=== PATIENT | female | born 1935 | race Caucasian/White ===

== ENCOUNTER 2019-03-13 18:43 | Emergency (ER) | payer OTHER ==
[2019-03-13 19:20] VITALS: BMI 26.2
--- NOTE | 2019-03-13 19:52 | PDOC ---
History of Present Illness - General History Source: Custodial Records Exam Limitations: Other (nonverbal) - History of Present Illness Initial Comments: 03/13/19 19:45 84YOF with h/o HTN, PVD, osteoarthritis, osteoporosis, schizoaffective disorder (essentially nonverbal and confused but alert at baseline), major depression, and anxiety who was BIBEMS from her CHF ([facility]) for witnessed fall from her wheelchair at 6:15 pm today. Per the Jesus RN in charge of her care at this time, she had been talking on the phone with a family member in the community TV room when she slipped out of the chair as witnessed by multiple other residents and staff. She was not reported to have lost consciousness, and did not complain of pain or any other symptoms subsequently. She did not lose a significant amount of blood on the floor but did suffer a small laceration to the top of the head. SNF staff deny any other preceding or subsequent obvious symptoms. She is DNR per SNF paperwork. <Winter Sheikh - Last Filed: 03/13/19 22:32> <Attila Graham - Last Filed: 03/16/19 20:17> - General Chief Complaint: Injury Stated Complaint: FALL Time Seen by Provider: 03/13/19 19:36 Past History - Past Medical History Anemia: No Asthma: No Cancer: No Cardiac Disorders: No CVA: No COPD: Yes (not on any meds or o2. SHERYL Igor states pt is not being treated for COPD) CHF: No Dementia: Yes Diabetes: No GI Disorders: Yes Disorders: No HTN: Yes Hypercholesterolemia: Yes Liver Disease: No Seizures: No Thyroid Disease: No - Surgical History Abdominal Surgery: No Appendectomy: No Cardiac Surgery: No Cholecystectomy: No Lung Surgery: No Neurologic Surgery: No Orthopedic Surgery: No - Suicide/Smoking/Psychosocial Hx Smoking History: Unknown if ever smoked Hx Alcohol Use: No Drug/Substance Use Hx: No Substance Use Type: None <Winter Sheikh - Last Filed: 03/13/19 22:32> <Attila Graham - Last Filed: 03/16/19 20:17> - Past Medical History Allergies/Adverse Reactions: Allergies Allergy/AdvReac Type Severity Reaction Status Date / Time apricot [Apricot] Allergy Unknown Verified 07/24/15 10:58 blueberry [Blueberry] Allergy Unknown Verified 07/24/15 10:58 peach [Pender] Allergy Unknown Verified 07/24/15 10:58 Pork/Porcine Containing Allergy Unknown Verified 07/24/15 10:58 Products strawberry [Avoca] Allergy Unknown Verified 07/24/15 10:58 seafood Allergy Unknown Uncoded 07/24/15 10:58 Home Medications: Ambulatory Orders Aspirin [ASA -] 81 mg PO DAILY 05/16/14 Cyanocobalamin Vit B-12 Inj. [Vitamin B12 Injection -] 1,000 mcg IM MONTHLY Docusate Sodium [Colace -] 2 tab PO HS 05/16/14 Furosemide [Lasix -] 40 mg PO DAILY 05/16/14 Gabapentin [Neurontin] 100 mg PO DAILY 05/16/14 Metoprolol Tartrate [Lopressor -] 25 mg PO BID 05/16/14 Polyethylene Glycol 3350 [Miralax 119 gm Btl -] 17 gm PO DAILY 05/16/14 Acetaminophen [Tylenol] 650 mg PO Q6H PRN 07/23/15 Clonazepam [Klonopin] 0.25 mg PO BID 07/23/15 Folic Acid 1 mg PO DAILY 07/23/15 Nystatin Cream [Mycostatin Cream -] 1 applic TP BID 07/23/15 Paroxetine HCl [Paxil -] 10 mg PO DAILY 07/23/15 Petrolatum,White [Hydrophor] 100 gm TP DAILY 07/23/15 Review of Systems - Review of Systems Able to Perform ROS?: No (nonverbal) <Winter Sheikh - Last Filed: 03/13/19 22:32> *Physical Exam - Vital Signs Last Vital Signs Temp Pulse Resp BP Pulse Ox 97.8 F 78 18 137/49 L 96 03/13/19 19:11 03/13/19 19:11 03/13/19 19:11 03/13/19 19:11 03/13/19 19:11 - Physical Exam Comments: 03/13/19 20:05 GENERAL: alert, awake, nonverbal, makes fleeting eye contact but does not track , moving all extremities, no distress, smiling HEENT: 2.5 cm laceration to right medial parietal region which is hemostatic and appears amenable to jeny, small non-boggy surrounding contusion without cephalohematoma, otherwise no obvious facial deformity, no cephalohematoma, no scalp laceration, no raccoon eyes, no proptosis, PERRLA, EOMI without pain, no nasal septal hematoma, no obvious CSF rhinorrhea, no epistaxis, no jaw malocclusion, no loose teeth, no yusuf sign, no hemotympanum, no obvious CSF otorrhea CHEST WALL: no flail chest, no costal stepoff or deformity, no bruises or lesions CARDIOVASCULAR: regular rhythm, normal S1S2, no MGR, capillary refill <2 seconds RESPIRATORY: symmetric chest expansion on inspiration, no increased WOB, no cyanosis ABDOMEN: abdomen soft, nondistendedd, nontender, pelvis stable EXTREMITIES: no obvious deformity, full ROM without pain NECK&BACK: no neck or back hematoma, no midline vertebral tenderness C/T/L spine , no spinal step-off or deformity, no paraspinous ttp CTL spine NEURO: good rectal tone, no saddle anesthesia,CN II-XII grossly intact, 5/5 strength and intact sensation throughout : no blood at the urethral meatus, normal external genitalia, no CVA tenderness SKIN: warm and dry, no pallor, no additional lacerations, no abrasions <AguilarWinter - Last Filed: 03/13/19 22:32> - Vital Signs Last Vital Signs Temp Pulse Resp BP Pulse Ox 98.4 F 88 17 153/57 L 96 03/13/19 23:30 03/13/19 23:30 03/13/19 23:30 03/13/19 23:30 03/13/19 23:30 <Attila Graham - Last Filed: 03/16/19 20:17> Procedures - Laceration/Wound Repair Right Head Wound Length: 2.6 to 5.0 cm Wound Explored: clean, no foreign body present Wound's Depth, Shape: linear Irrigated w/ Saline: Yes Betadine Prep: No Wound Repaired With: Jeny (#4) Sterile Dressing Applied: Yes Splint Applied: No Sling Applied: No Progress: 03/13/19 22:35 Patient tolerated well <Winter Sheikh - Last Filed: 03/13/19 22:32> ED Treatment Course - RADIOLOGY Radiology Studies Ordered: Category Date Time Status CERVICAL SPINE CT W/O CONTR [CT] Stat CT Scan 03/13/19 19:[address] WITHOUT CONTRAST [CT] Stat CT Scan 03/13/19 19:44 Ordered <SheikhWinter alexander - Last Filed: 03/13/19 22:32> - Medications Given in the ED: ED Medications Discontinued Medications Generic Name Dose Route Start Last Admin Trade Name Andrade PRN Reason Stop Dose Admin Bacitracin 0.9 gm 03/13/19 22:36 03/13/19 22:40 Bacitracin - TP 03/13/19 22:37 0.9 gm ONCE ONE Administration Diphtheria/Tetanus/Acell Pertussis 0.5 ml 03/13/19 21:35 03/13/19 21:56 Boostrix - IM 03/13/19 21:36 0.5 ml .ONCE ONE Administration <Attila Graham - Last Filed: 03/16/19 20:17> Medical Decision Making - Medical Decision Making 03/13/19 19:55 84YOF p/w fall and head injury, stated witnessed mechanical by Jesus CRONIN. Initial Vital Signs Temp Pulse Resp BP Pulse Ox 97.8 F 78 18 137/49 L 96 03/13/19 19:11 03/13/19 19:11 03/13/19 19:11 03/13/19 19:11 03/13/19 19:11 Exam: As noted in Physical Exam section.scalp contusion, DDX IBNLT: most likely simple scalp contusion with laceration, less likely concussion, ICH, skull fracture, facial bone fracture, etc. W/U ordered: Head and C-spine CT TX ordered: None at this time. CT Head: Nothing acute CT C-spine: No acute fracture Laceration numbed, cleaned, repaired without issue as noted in Procedures section. Hemostasis achieved, good approximation, Bacitracin applied and wound dressed. 03/13/19 22:32 Patient appears comfortable/no distress here in the ED. They have been observed without AMS, n/v, LOC, or focal neuro findings in the ED. Workup is not concerning for emergency-level pathology at this time. The Pt is appropriate for discharge with close outpatient follow up. They will follow up with their primary care provider in 1-3 days as instructed on D/C instructions to SNF. Return precautions for concussion and CHI are discussed and they will come back to the ER if necessary. <Winter Sheikh - Last Filed: 03/13/19 22:32> *DC/Admit/Observation/Transfer - Discharge Dispostion Decision to Admit order: No <Winter Sheikh - Last Filed: 03/13/19 22:32> <Attila Graham - Last Filed: 03/16/19 20:17> Diagnosis at time of Disposition: Fall from wheelchair Qualifiers: Encounter type: initial encounter Qualified Code(s): W05.0XXA - Fall from non- moving wheelchair, initial encounter Scalp laceration Qualifiers: Encounter type: initial encounter Qualified Code(s): S01.01XA - Laceration without foreign body of scalp, initial encounter - Discharge Dispostion Disposition: [facility] Condition at time of disposition: Stable - Referrals Referrals: Humberto Bermudez MD [Primary Care Provider] - - Patient Instructions Printed Discharge Instructions: DI for Laceration Repair -- Kiel Additional Instructions: You were seen in the ER for a fall and a scalp laceration. We did an exam and head/neck CT scans which showed no concerning findings. We updated your tetanus vaccination, and cleaned and repaired your laceration with jeny. After our assessment, we do not believe you are having a medical emergency at this time, and we believe you are safe to go home. Please read the information in this packet on how to care for your laceration. Keep the dressing on your wound for 24 hours and keep this dressing clean and dry. After 24 hours, you can take the dressing off and you can shower and get the wound wet, but do not scrub the wound and do not soak it in water. Do not go take a bath or submerge the wound in standing water. Put a thin layer of antibiotic ointment on the wound once in the morning and once in the evening. Please follow up with your primary care provider to have the jeny removed in approximately 7 days, or return here to the ER to have them removed. If you have any new or worsening symptoms, especially increasing pain and redness to the area or other signs of infection like fever, please come back to the ER at any time (24 hours a day). If you are having severe or life threatening symptoms , or symptoms that make it unsafe to drive or have someone drive you, please call 911. - Post Discharge Activity
--- NOTE | 2019-03-13 20:51 | PDOC ---
Documentation entered by Devi Lagos SCRIBE, acting as scribe for Attila Graham MD. Attila Graham MD: This documentation has been prepared by the Yolis ojeda Adrianna, SCRIBE, under my direction and personally reviewed by me in its entirety. I confirm that the documentation accurately reflects all work, treatment, procedures, and medical decision making performed by me. Attending Attestation - Resident Resident Name: Winter Sheikh - ED Attending Attestation I have performed the following: I have examined & evaluated the patient, The case was reviewed & discussed with the resident, I agree w/resident's findings & plan, Exceptions are as noted - HPI HPI: The patient is an 84 year old female, with a significant PMH of HTN, PVD, osteoarthritis, osteoporosis, schizoaffective disorder (nonverbal and confused, but alert, at baseline), and major depression, who presents to the ED BIBA from [facility] s/p witnessed fall. As per nurse from [facility], patient slipped out of her wheelchair while at dinner 1.5 hour ago and hit her head. She presents with a laceration to the right-side of the top of her head. [facility] and was sent to the ED for further evaluation. Pt was not witnessed to have LOC or any change in her baseline behavior. Patient is not currently on any anti-coagulants. HPI is limited secondary to patient being non-verbal at baseline. Allergies: Apricot, blueberry, peach, pork/porcine, strawberry, seafood Surgical History: None reported Social History: Non-verbal and confused, but alert, at baseline PCP: Dr. Humberto Bermudez - Physicial Exam PE: GENERAL: Awake, alert, and fully oriented, in no acute distress. HEAD: + 2 cm lac to R parietal scalp EYES: PERRLA, EOMI, sclera anicteric, conjunctiva clear ENT: Auricles normal inspection, hearing grossly normal, nares patent, oropharynx clear without exudates. Moist mucosa NECK: Nontender, no stepoffs, Normal ROM, supple, no lymphadenopathy, JVD, or masses LUNGS: Breath sounds equal, clear to auscultation bilaterally. No wheezes, and no crackles HEART: Regular rate and rhythm, normal S1 and S2, no murmurs, rubs or gallops ABDOMEN: Soft, nontender, normoactive bowel sounds. No guarding, no rebound. No masses EXTREMITIES: Normal range of motion, no edema. No clubbing or cyanosis. No cords, erythema, or tenderness NEUROLOGICAL: Cranial nerves II through XII intact. 5/5 strength and sensation in all extremities, Normal speech, normal gait, normal cerebellar function SKIN: Warm, Dry, normal turgor, no rashes or lesions noted. - Medical Decision Making 03/13/19 20:50 84 F with witnessed fall at CT. Based on report, fall appears to be mechanical. Pt unable to contribute additional history but low suspicion for syncope. - CT head/cspine - Lac repair 03/13/19 22:19 CTs negative Lac repaired Pt is well appearing, with normal vitals. Clinically stable for DC at this time. I discussed the physical exam findings, ancillary test results and final diagnoses with the patient. I answered all of the patient's questions. The patient was satisfied with the care received and felt comfortable with the discharge plan and treatment plan. The patient agrees to follow up with the primary care physician within 24-72 hours. 03/13/19 22:57 EXAM#: TYPE/EXAM: RESULT: [id number] CT/CERVICAL SPINE CT W/O CONTR Cervical spine CT without contrast Clinical information: status post fall Impression: No fracture is seen. Reported By: Alex Slaughter MD 03/13/19 21:48 EXAM#: TYPE/EXAM: RESULT: [id number] CT/HEAD CT WITHOUT CONTRAST Cranial CT without contrast Clinical information: status post fall Impression: limited exam as noted above. No obvious acute intracranial pathology is identified. A small right parietal scalp hematoma is seen. Reported By: Alex Slaughter MD 03/13/19 21:38
[2019-03-13] MEDS ORDERED: DIPHTH,PERTUSS(ACELL),TET 0.5 ML DISP.SYRIN IM ONE ×2 (21:35→21:53)
[2019-03-13] MEDS ORDERED: BACITRACIN 0.9 GM PACKET ONE (22:07)
[2019-03-13] MEDS ORDERED: BACITRACIN 0.9 GM PACKET TP ONE (22:36)
[2019-03-14 01:27] VITALS: BP 153/57; PULSE 88; TEMP 98.4
== END 2019-03-14 01:11 ==
LOC: JER 18:43
PROC: 3E0234Z Introduction of Serum, Toxoid and Vaccine into Muscle, Percutaneous Approach (ICD-10-PCS; principal; 2019-03-13)
PROC: 0HQ0XZZ Repair Scalp Skin, External Approach (ICD-10-PCS; 2019-03-13)
DX: S01.01XA Laceration without foreign body of scalp, initial encounter (principal); W05.0XXA Fall from non-moving wheelchair, initial encounter; Y93.89 Activity, other specified; Y92.128 Other place in nursing home as the place of occurrence of the external cause; Y99.8 Other external cause status; I10 Essential (primary) hypertension; I73.89 Other specified peripheral vascular diseases; M19.90 Unspecified osteoarthritis, unspecified site; M81.8 Other osteoporosis without current pathological fracture; F25.9 Schizoaffective disorder, unspecified; F41.9 Anxiety disorder, unspecified; F33.9 Major depressive disorder, recurrent, unspecified
CPT/HCPCS: 12002-25; 70450-TC; 72125-TC; 90471; 90715; 99282-25